=== PATIENT | male | born 1970 | race Caucasian/White ===

== ENCOUNTER 2018-10-31 18:39 | Emergency (ER) | payer OTHER ==
[2018-10-31 19:04] VITALS: BP 133/88; PULSE 70; TEMP 98.7; BMI 21.7
[2018-10-31 20:05] LABS: BASO % 0.8 % (0-2.0); EOS % 1.7 % (0-4.5); HEMATOCRIT 44.4 % (35.4-49); HEMOGLOBIN 14.7 GM/dl (11.7-16.9); LYMPH % 18.3 % (8-40); MCH 31.7 pg (25.7-33.7); MCHC 33.1 g/dl (32.0-35.9); MEAN CELL VOLUME 95.6 fl (80-96); MEAN PLT VOLUME 7.9 fl (7.5-11.1); MONO % 9.4 % (3.8-10.2); NEUT % 69.8 % (42.8-82.8); PLATELET COUNT 271 K/MM3 (134-434); RBC 4.65 M/mm3 (4.00-5.60); RDW 12.4 % (11.9-15.9); WHITE BLOOD COUNT 8.8 K/mm3 (4.0-10.8)
[2018-10-31 20:34] LABS: ALBUMIN 4.2 g/dl (3.4-5.0); BILIRUBIN,TOTAL 0.7 mg/dl (0.2-1); CALCIUM 8.9 mg/dl (8.5-10); POTASSIUM 3.8 mmol/L (3.5-5.1); TOT PROT 6.6 g/dl (6.4-8.2)
--- NOTE | 2018-10-31 21:01 | PDOC ---
Documentation entered by Elena Llanos SCRIBE, acting as scribe for Palmer Zazeuta MD. Palmer Zazueta MD: This documentation has been prepared by the Romi shields Nirvannie, SCRIBE, under my direction and personally reviewed by me in its entirety. I confirm that the documentation accurately reflects all work, treatment, procedures, and medical decision making performed by me. History of Present Illness - General Chief Complaint: Lightheaded Stated Complaint: dizzy,numbness History Source: Patient Exam Limitations: No Limitations - History of Present Illness Initial Comments: 10/31/18 19:48 CC: Lightheadedness, tingling to the bilateral upper extremities, and tinnitus HPI: The patient is a 47 year old male, with a significant past medical history of, who presents to the emergency department with, lightheadedness, tingling to the bilateral upper extremities, and tinnitus. As per patient, his symptoms onset approximately an hour prior to his arrival with associated diaphoresis and chest tightness. He notes his symptoms are similar to prior episodes which she he had an outpatient cardiology workup and noted to be secondary to anxiety. He notes his symptoms are normally resolved with deep breaths and thinking excercises but, today lasted longer with associated new onset of diaphoresis. He denies any recent fevers or chills. He denies any recent nausea, vomiting, diarrhea, or constipation. He denies any recent palpitations or shortness of breath. He denies any recent dysuria, frequency, urgency, or hematuria. Allergies: NKDA Past surgical history: Tonsillectomy. Social History: Social alcohol usage. Nonsmoker. Denies recreational drug use. Past History - Past Medical History Allergies/Adverse Reactions: Allergies Allergy/AdvReac Type Severity Reaction Status Date / Time No Known Allergies Allergy Verified 10/31/18 18:41 Home Medications: Ambulatory Orders Albuterol Sulfate Inhaler - [Ventolin HFA Inhaler -] 2 inh PO Q6H PRN #1 inh Montelukast Sodium [Singulair] 10 mg PO DAILY 10/31/18 Ramipril [Altace] 2.5 mg PO DAILY 10/31/18 Asthma: Yes COPD: No HTN: Yes Other medical history: anxiety? few episodes of panic - Immunization History Immunization Up to Date: Yes - Suicide/Smoking/Psychosocial Hx Smoking History: Never smoked Have you smoked in the past 12 months: No Number of Cigarettes Smoked Daily: 0 Information on smoking cessation initiated: No Hx Alcohol Use: No Drug/Substance Use Hx: No Substance Use Type: Alcohol Review of Systems - Review of Systems Able to Perform ROS?: Yes Comments:: 10/31/18 19:49 ROS: A complete review of 10 out of 10 review of systems is taken and is negative apart from what is previously mentioned below and in the HPI. *Physical Exam - Vital Signs Last Vital Signs Temp Pulse Resp BP Pulse Ox 98.7 F 70 20 133/88 98 10/31/18 18:40 10/31/18 18:40 10/31/18 18:40 10/31/18 18:40 10/31/18 18:40 - Physical Exam Comments: 10/31/18 19:49 Exam Vitals: Triage Vital signs reviewed General Appearance: no acute distress, well nourished well developed, Head: Atraumatic, normocephalic Neck: Supple;No Nuchal rigidity Chest Wall: Nontender Cardiac: Regular rate and rhythm, no murmurs, no rubs, no gallops, Lungs: Clear to auscultation bilateral, good air movement bilaterally, Abdomen: Soft, nondistended, normal bowel sounds, nontender to palpation Rectal: Exam deferred Extremities: Full range of motion to all extremities, no cyanosis, clubbing, or edema Skin: Warm and dry, no rashes or lesions, no petechiae Neuro: AOX3; Cranial Nerves 2-12 grossly c intact, Strength intact to all extremities, Sensation intact to all extremities. Psych: normal mood, normal affect Heart Score/ECG Review - History History: Slightly suspicious - Electrocardiogram EKG: Normal - Age Age: </= 45 - Risk Factors Risk Factors Heart Score: Yes Hx Hypertension Based on the list above the patient has:: 1-2 risk factors - Troponin Troponin: </= normal limit - Score Heart Score - Total: 1 - ECG Impressions Comment:: 10/31/18 20:59 EKG performed at 1952 demonstrates normal sinus rhythm no ST elevations or T- wave inversions Interpreted by me. ED Treatment Course - LABORATORY CBC & Chemistry Diagram: 10/31/18 19:41 10/31/18 19:41 - ADDITIONAL ORDERS Additional order review: Laboratory Results 10/31/18 10/31/18 19:41 19:41 Sodium 140 Potassium 3.8 Chloride 103 Carbon Dioxide 27 Anion Gap 10 BUN 16.0 Creatinine 1.0 Est GFR (CKD-EPI)AfAm 102.69 Est GFR (CKD-EPI)NonAf 88.61 Random Glucose 93 Calcium 8.9 Total Bilirubin 0.7 AST 22 ALT 21 Alkaline Phosphatase 60 Troponin I < 0.03 Total Protein 6.6 Albumin 4.2 10/31/18 19:41 RBC 4.65 MCV 95.6 MCHC 33.1 RDW 12.4 MPV 7.9 Neutrophils % 69.8 Lymphocytes % 18.3 Monocytes % 9.4 Eosinophils % 1.7 Basophils % 0.8 Medical Decision Making - Medical Decision Making 10/31/18 19:50 47 year old male, with a significant past medical history of, who presents to the emergency department with, lightheadedness, tingling to the bilateral upper extremities, and tinnitus. Plan is: EKG CBC CMP Troponin Reassess 10/31/18 20:59 Well-appearing no apparent distress history and examination most consistent with anxiety/panic attack Patient did have brief episode of chest tightness associated with the sweating and arm tingling Heart Score 1 He has no cardiac risk factors symptoms have resolved was no exertional component to symptomatology he is experiencing symptoms before His EKG was nonischemic his troponin was negative his laboratory analysis was otherwise unremarkable patient currently feels better Patient advised to follow-up with his primary care provider this week. Findings, the need for follow-up and strict return instructions discussed with patient. 10/31/18 21:00 *DC/Admit/Observation/Transfer Diagnosis at time of Disposition: Light headedness - Discharge Dispostion Disposition: HOME Condition at time of disposition: Good Decision to Admit order: No - Referrals - Patient Instructions Printed Discharge Instructions: DI for Atypical Chest Pain Additional Instructions: Drink plenty fluids. Take all home medications as prescribed. Follow-up with her primary care provider this week. Return to the emergency department for any severe worsening symptoms or for any concerns. - Post Discharge Activity Forms/Work/School Notes: Back to Work
--- NOTE | 2018-11-01 10:39 | EKG ---
Test Reason : Blood Pressure : / mmHG Vent. Rate : 064 BPM Atrial Rate : 064 BPM P-R Int : 140 ms QRS Dur : 106 ms QT Int : 390 ms P-R-T Axes : 020 010 020 degrees QTc Int : 402 ms NORMAL SINUS RHYTHM WITH SINUS ARRHYTHMIA NORMAL ECG NO PREVIOUS ECGS AVAILABLE Confirmed by MAHENDRA OTOOLE MD ([id number]) on 11/01/2018 10:39:38 AM Referred By: MD SOTO Confirmed By:MAHENDRA OTOOLE MD
== END 2018-10-31 21:18 | disposition home or self-care (01) ==
LOC: FER 18:39
DX: R42 Dizziness and giddiness (principal); I10 Essential (primary) hypertension; J45.909 Unspecified asthma, uncomplicated; F41.9 Anxiety disorder, unspecified
CPT/HCPCS: 36415; 80053; 84484; 85025; 93005; 99283-25

== ENCOUNTER 2019-05-25 05:35 | Emergency (ER) | payer OTHER ==
[2019-05-25 05:44] VITALS: BP 150/103; PULSE 72; TEMP 97.6; BMI 23.7
[2019-05-25] MEDS ORDERED: ALPRAZolam 1 MG TABLET PO PRN (05:48)
[2019-05-25] MEDS ORDERED: ALPRAZolam 0.25 MG TABLET ONE (05:51)
--- NOTE | 2019-05-25 05:51 | PDOC ---
History of Present Illness - General Chief Complaint: Blood Pressure Problem Stated Complaint: HIGH BLOOD PRESSURE/LIGHTHEADED Time Seen by Provider: 05/25/19 05:45 History Source: Patient Exam Limitations: No Limitations - History of Present Illness Initial Comments: 05/25/19 05:49 This is a 48-year-old male who comes in complaining of a panic attack. Patient has a long history of anxiety and panic attacks. Patient said that he has not been seeing his therapist because he cannot afford to see his therapist. Patient said he woke up this morning and developed tingling in his hands and felt very anxious and panicky so he came in for evaluation. Allergies: as per nursing notes Past Medical History: none Social history: Lives with family. No smoking. No alcohol. No illicit drugs. Surgical history: None General: No fevers or chills, no weakness, no weight loss, anxiety HEENT: No change in vision. No sore throat,. No ear pain CardioVascular: no chest discomfort. No shortness of breath Respiratory:No cough, or wheezing. Gastrointestinal: no nausea, vomiting, diarrhea or constipation, No rectal bleeding Genitourinary: No dysuria, hematuria, or frequency Musculoskeletal: No joint or muscle pain or swelling Neurologic: No headache, vertigo, dizziness or loss of consciousness Psychiatric: nor depression Skin: No rashes or easy bruising Endocrine: no increased thirst or abnormal weight change Allergic: no skin or latex allergy All other systems reviewed and normal Exam: General: Well-nourished well-developed individual, no acute distress HEENT: Throat: Normal, tonsils normal, no erythema or exudate Neck: Supple, no meningeal signs, no lymphadenopathy Eyes::Pupils equal reactive and round, extraocular motion intact Chest: Nontender to palpation Cardiac: S1-S2 normal, regular rate and rhythm, no murmurs rubs or gallops Respiratory: Lungs clear to auscultation bilateral Abdomen: Soft, nondistended, normal bowel sounds, there is no tenderness on palpation diffusely Extremities: Warm, dry, no cyanosis, clubbing, or edema Skin: No rashes Neuro: Alert and oriented x3, CN II - XII intact, nonfocal exam with normal strength, normal sensation, normal reflexes, normal gait, Psych: Anxious Assessment and plan: This is a 48-year-old male with anxiety/panic attack who came in with a panic attack patient was given Xanax felt better and was discharged. Past History - Past Medical History Allergies/Adverse Reactions: Allergies Allergy/AdvReac Type Severity Reaction Status Date / Time No Known Allergies Allergy Verified 05/25/19 05:39 Home Medications: Ambulatory Orders Albuterol Sulfate Inhaler - [Ventolin HFA Inhaler -] 2 inh PO Q6H PRN #1 inh Ramipril [Altace] 2.5 mg PO DAILY 10/31/18 Asthma: Yes COPD: No HTN: Yes Other medical history: ANXIETY - Immunization History Immunization Up to Date: Yes - Psycho Social/Smoking Cessation Hx Smoking History: Never smoked Have you smoked in the past 12 months: No Number of Cigarettes Smoked Daily: 0 Information on smoking cessation initiated: No Hx Alcohol Use: Yes (RARELY) Drug/Substance Use Hx: No Substance Use Type: Alcohol *Physical Exam - Vital Signs Last Vital Signs Temp Pulse Resp BP Pulse Ox 97.6 F 72 17 150/103 H 99 05/25/19 05:40 05/25/19 05:40 05/25/19 05:40 05/25/19 05:40 05/25/19 05:40 Discharge - Discharge Information Problems reviewed: Yes Clinical Impression/Diagnosis: Anxiety Condition: Stable Disposition: HOME - Admission No - Follow up/Referral - Patient Discharge Instructions Additional Instructions: It is important that you see your therapist and follow-up with your therapist as your anxiety/panic attacks will get worse until you get some help. Return to the emergency department immediately with ANY new, persistent or worsening symptoms. Continue any medications as previously prescribed by your physician. You should follow up with your primary doctor as soon as possible regarding today's emergency department visit. . Please make sure your doctor reviews the results of your emergency evaluation. Thank you for coming to the Emergency Department today for your care. It was a pleasure to see you today. Please note that your evaluation is INCOMPLETE until you follow-up with your doctor. - Post Discharge Activity
== END 2019-05-25 06:11 | disposition home or self-care (01) ==
LOC: FER 05:35
DX: F41.9 Anxiety disorder, unspecified (principal); I10 Essential (primary) hypertension; J45.909 Unspecified asthma, uncomplicated
CPT/HCPCS: 99281-25

== ENCOUNTER 2020-08-09 10:58 | Emergency (ER) | payer OTHER ==
[2020-08-09 11:03] VITALS: TEMP 98.8; BMI 23.7
[2020-08-09 12:44] VITALS: BP 138/91; PULSE 72
== END 2020-08-09 13:01 | disposition home or self-care (01) ==
LOC: FER 10:58
DX: Z73.3 Stress, not elsewhere classified (principal); I10 Essential (primary) hypertension
CPT/HCPCS: 93005; 99284-25

== ENCOUNTER 2020-08-28 05:19 | Emergency (ER) | payer OTHER ==
[2020-08-28] MEDS ORDERED: ONDANSETRON 4 MG/2 ML VIAL IVPUSH ONE (05:28)
[2020-08-28] MEDS ORDERED: SODIUM CHLORIDE 1,000 ML IV ONE (05:28)
[2020-08-28] MEDS ORDERED: KETOROLAC TROMETHAMINE 30 MG/1 ML VIAL IVPUSH ONE (05:28)
[2020-08-28] MEDS ORDERED: ONDANSETRON 4 MG/2 ML VIAL ONE (05:37)
[2020-08-28] MEDS ORDERED: KETOROLAC TROMETHAMINE 30 MG/1 ML VIAL ONE (05:37)
[2020-08-28 05:44] VITALS: BP 129/94; PULSE 82; TEMP 97.8; BMI 23.7
[2020-08-28] MEDS ORDERED: morphine SULFATE 4 MG/ML VIAL ONE (06:09)
[2020-08-28] MEDS ORDERED: morphine CARPU-JECT 4 MG/1 ML DISP.SYRIN IVPUSH ONE (06:15)
[2020-08-28 06:43] LABS: BASO % 0.7 % (0-2.0); EOS % 2.5 % (0-4.5); HEMATOCRIT 41.9 % (35.4-49); HEMOGLOBIN 14.9 GM/dL (11.7-16.9); LYMPH % 50.9 % (8-40); MCH 32.5 pg (25.7-33.7); MCHC 35.6 g/dl (32.0-35.9); MEAN CELL VOLUME 91.3 fl (80-96); MEAN PLT VOLUME 8.1 fl (7.5-11.1); MONO % 11.3 % (3.8-10.2); NEUT % 34.6 % (42.8-82.8); PLATELET COUNT 280 K/MM3 (134-434); RBC 4.59 M/mm3 (4.00-5.60); RDW 12.8 % (11.9-15.9); WHITE BLOOD COUNT 6.8 K/mm3 (4.0-10.0)
[2020-08-28 07:58] LABS: EPI CELLS 6 /uL (0-25.1); HYALINE CASTS 1 /uL (0-3.1); PH,URINE 5.5 (5.0-8.0); URINE APPEARANCE CLOUDY; URINE BACTERIA 14 /uL (0-1359); URINE BILIRUBIN NEGATIVE (NEGATIVE); URINE COLOR YELLOW; URINE GLUCOSE (UA) NEGATIVE (NEGATIVE); URINE KETONE TRACE (NEGATIVE); URINE LEUK ESTERASE NEGATIVE (NEGATIVE); URINE NITRITE NEGATIVE (NEGATIVE); URINE PROTEIN 1+ (NEGATIVE); URINE RBC 2740 /uL (0-23.9); URINE UROBILINOGEN 0.2 mg/dL (0.2-1.0); URINE WBC 19 /uL (0-25.8)
[2020-08-28 08:28] LABS: ALBUMIN 3.8 g/dl (3.4-5.0); ALK PHOS 66 U/L (45-117); ANION GAP 7 MMOL/L (8-16); BILIRUBIN,TOTAL < 0.1 mg/dL (0.2-1); BLOOD UREA NITROGEN 25.4 mg/dL (7-18); CALCIUM 8.5 mg/dL (8.5-10.1); CHLORIDE 109 mmol/L (98-107); CO2 26 mmol/L (21-32); CREATININE 1.2 mg/dL (0.55-1.3); GLUCOSE,RANDOM 110 mg/dL (74-106); SGOT/AST 45 U/L (15-37); SGPT/ALT 77 U/L (13-61); SODIUM 142 mmol/L (136-145); TOT PROT 6.5 g/dl (6.4-8.2)
== END 2020-08-28 09:01 | disposition home or self-care (01) ==
LOC: FER 05:19
PROC: 3E0333Z Introduction of Anti-inflammatory into Peripheral Vein, Percutaneous Approach (ICD-10-PCS; principal; 2020-08-28)
PROC: 3E033NZ Introduction of Analgesics, Hypnotics, Sedatives into Peripheral Vein, Percutaneous Approach (ICD-10-PCS; 2020-08-28)
PROC: 3E0337Z Introduction of Electrolytic and Water Balance Substance into Peripheral Vein, Percutaneous Approach (ICD-10-PCS; 2020-08-28)
PROC: 3E033GC Introduction of Other Therapeutic Substance into Peripheral Vein, Percutaneous Approach (ICD-10-PCS; 2020-08-28)
DX: N20.1 Calculus of ureter (principal)
CPT/HCPCS: 36415; 74176-TC; 80053; 81003; 85025; 99285-25

== ENCOUNTER 2021-09-11 01:55 | Emergency (ER) | payer OTHER ==
[2021-09-11 02:05] VITALS: BP 140/97; PULSE 114; TEMP 101.1; BMI 25.0
[2021-09-11] MEDS ORDERED: ACETAMINOPHEN 500 MG TABLET (FP) ONE (02:09)
[2021-09-11] MEDS ORDERED: ONDANSETRON *ODT* 4 MG TABLET ONE (02:09)
[2021-09-11] MEDS ORDERED: ACETAMINOPHEN 500 MG TABLET (FP) PO ONE (02:11)
[2021-09-11] MEDS ORDERED: ONDANSETRON *ODT* 4 MG TABLET SL ONE (02:11)
== END 2021-09-11 02:18 | disposition home or self-care (01) ==
LOC: FER 01:55
DX: U07.1 COVID-19 (principal)
CPT/HCPCS: 99283-25; Q0162

== ENCOUNTER 2022-01-18 14:37 | Emergency (ER) | payer OTHER ==
[2022-01-18 14:42] VITALS: RESP 18; TEMP 98; BMI 24.4
[2022-01-18 16:48] VITALS: BP 131/75; PULSE 62
== END 2022-01-18 17:14 | disposition home or self-care (01) ==
LOC: JER 14:37
DX: R55 Syncope and collapse (principal)
CPT/HCPCS: 82962; 93005; 93010; 99284-25